=== PATIENT | male | born 1965 | race Caucasian/White ===

== ENCOUNTER 2021-01-14 14:05 | Outpatient (REF) | payer BC, SELFPAY ==
[2021-01-14 17:09] LABS: PSA,Total (Free>4and<10) 1.73 ng/mL (0.00-4.00)
== END 2021-01-14 14:06 | disposition home or self-care (01) ==
LOC: HO.HMGCLDS 14:05
PROVIDERS: PCP Nurse Practitioner Family; Visit Provider Urology
DX: N32.0 Bladder-neck obstruction (principal); Z12.5 Encounter for screening for malignant neoplasm of prostate
CPT/HCPCS: 36415; 84153

== ENCOUNTER → 2021-05-26 15:06 | Outpatient (BNVA) | payer BC, SELFPAY | PROVIDERS: PCP Nurse Practitioner Family; Visit Provider Urology ==

== ENCOUNTER 2021-08-19 12:48 | Outpatient (REF) | payer BC, SELFPAY ==
[2021-08-19 14:15] LABS: Appearance Urine CLEAR; Color Urine YELLOW; Glucose Urine UA NEG (NEG); Leukocyte Esterase Urine NEG (NEG); Nitrite Urine NEG (NEG); Specific Gravity - Urine 1.025 (1.005-1.025); Urine Blood NEG (NEG); Urine Ketones NEG (NEG); Urine Protein NEG (NEG-TRACE)
[2021-08-19 14:37] LABS: Alanine Aminotransferase 40 U/L (0-40); Albumin Level 4.8 g/dL (3.5-5.0); Alkaline Phosphatase 46 U/L (39-117); Anion Gap 14 (12-20); Aspartate Amino Transferase 31 U/L (5-37); Bilirubin Total 0.6 mg/dL (0.0-1.0); Blood Urea Nitrogen 17 mg/dL (9-16); Calcium 10.1 mg/dL (8.4-10.2); Carbon Dioxide 26 mmol/L (22-29); Chloride 105 mmol/L (96-108); Cholesterol 226 mg/dL; Estimated Glomerular Filt Rate 50; Glucose Fasting 86 mg/dL (60-99); HDL Cholesterol 38 mg/dL; LDL Cholesterol Calculated 136 mg/dl; Potassium 4.1 mmol/L (3.3-5.1); Sodium 141 mmol/L (135-145); Total Protein 8.1 g/dL (6.5-8.0); Triglycerides 260 mg/dL
[2021-08-19 14:58] LABS: TSH reflex Free T4 4.66 uIU/mL (0.32-4.0)
[2021-08-19 15:45] LABS: Free T4 (Free Thyroxine) 0.96 ng/dL (0.71-1.85)
== END 2021-08-19 12:49 | disposition home or self-care (01) ==
LOC: HO.HMGCLDS 12:48
PROVIDERS: PCP Nurse Practitioner Family; Visit Provider Nurse Practitioner Family
DX: Z00.00 Encounter for general adult medical examination without abnormal findings (principal)
CPT/HCPCS: 36415; 80053; 80061; 81003; 84439; 84443

== ENCOUNTER 2022-05-21 08:34 | Outpatient (REF) | payer BC, SELFPAY ==
[2022-05-21 11:54] LABS: Cholesterol 197 mg/dL; HDL Cholesterol 40 mg/dL; LDL Cholesterol Calculated 118 mg/dl; Triglycerides 197 mg/dL
[2022-05-21 11:55] LABS: Prostate Specific Antigen 1.86 ng/mL (<0.05-4.0)
[2022-05-21 11:56] LABS: TSH reflex Free T4 4.05 uIU/mL (0.32-4.0)
[2022-05-21 12:43] LABS: Free T4 (Free Thyroxine) 1.06 ng/dL (0.71-1.85)
[2022-05-24 22:02] LABS: Thyroid Peroxidase Antibodies 5 IU/mL (<9)
== END 2022-05-21 08:35 | disposition home or self-care (01) ==
LOC: HO.HMGCLDS 08:34
PROVIDERS: PCP Nurse Practitioner Family; Visit Provider Urology
DX: Z12.5 Encounter for screening for malignant neoplasm of prostate (principal); N13.8 Other obstructive and reflux uropathy; N40.1 Benign prostatic hyperplasia with lower urinary tract symptoms; E78.5 Hyperlipidemia, unspecified; R79.89 Other specified abnormal findings of blood chemistry
CPT/HCPCS: 36415; 80061; 84153; 84439; 84443; 86376

== ENCOUNTER → 2022-05-26 15:18 | Outpatient (BNVA) | payer BC, SELFPAY | PROVIDERS: PCP Nurse Practitioner Family; Visit Provider Urology | DX: N40.1 Benign prostatic hyperplasia with lower urinary tract symptoms (principal); N13.8 Other obstructive and reflux uropathy; R35.1 Nocturia | CPT/HCPCS: 51798 ==

== ENCOUNTER 2022-07-14 13:21 | Outpatient (REF) | payer BC, SELFPAY ==
--- NOTE | ~2022-07-14 | XR_ITS ---
EXAMINATION: XR HAND, RIGHT CLINICAL INFORMATION: M79.641 - Pain in right hand COMPARISON: Right hand radiographs 07/26/2017 TECHNIQUE: PA, lateral, and oblique views of the right hand. FINDINGS: No acute or healing fracture, dislocation, or destructive process. No periarticular demineralization. Ulnar variance is neutral. There is minor punctate mineralization just distal to the ulnar styloid which could be related to the ulnar attachment triangular fibrocartilage, not previously demonstrated. The carpus shows no joint narrowing or erosive change or other chondrocalcinosis. The MCP and interphalangeal joints show no focal narrowing or erosive change. There are mild degenerative changes with some mild spurring at the base distal phalanges. XR/XR hand RT min 3V IMPRESSION: 1. Punctate mineralization just distal to ulnar styloid, possibly related to ulnar attachment of triangular fibrocartilage. Otherwise, no other chondrocalcinosis. 2. Mild degenerative changes base distal phalanges. No focal joint narrowing or erosive change.
[2022-07-14 16:34] LABS: MANUAL DIFF FLAG NO
[2022-07-14 16:43] LABS: Basophils Percent Auto 0.4 % (0-2); Eosinophils Absolute Auto 0.1 X10*3/uL (0.0-0.4); Eosinophils Percent Auto 1.5 % (0-4); Hematocrit 46.4 % (42.0-52.0); Hemoglobin 15.7 g/dl (14.0-18.0); Imm Gran Abs Auto 0.02 X10*3/uL (0.00-0.03); Imm Gran Pct Auto 0.3 % (0.0-0.4); Lymphocytes Absolute Auto 2.8 X10*3/uL (1.2-4.9); Lymphocytes Percent Auto 37.5 % (20-40); Mean Corpuscular HGB Conc 33.8 g/dl (31.0-36.0); Mean Corpuscular Hemoglobin 30.6 pg (27.0-33.0); Mean Corpuscular Volume 90.4 fL (80.0-98.0); Mean Platelet Volume 10.6 fL (9.4-12.4); Monocytes Absolute Auto 0.7 X10*3/uL (0.1-1.2); Monocytes Percent Auto 9.2 % (2-11); Neutrophils Absolute Auto 3.9 x10*3/uL (2.0-8.3); Neutrophils Percent Auto 51.1 % (45-73); Platelet Count 226 X10*3/uL (160-400); Red Blood Count 5.13 X10*6/uL (4.60-5.80); Red Cell Distribution Width 11.8 % (11.0-16.0); White Blood Count 7.6 X10*3/uL (4.8-10.8)
[2022-07-14 16:54] LABS: Appearance Urine Clear; Color Urine Yellow; Glucose Urine UA Negative (Negative); Leukocyte Esterase Urine Negative (Negative); Nitrite Urine Negative (Negative); PH 5.5 (5.0-9.0); Urine Blood Negative (Negative); Urine Ketones Negative (Negative); Urine Protein Negative (Neg-Trace)
[2022-07-14 17:25] LABS: Alanine Aminotransferase 37 U/L (0-40); Albumin Level 4.8 g/dL (3.5-5.0); Alkaline Phosphatase 45 U/L (39-117); Anion Gap 16 (12-20); Aspartate Amino Transferase 26 U/L (5-37); Bilirubin Total 0.5 mg/dL (0.0-1.0); Blood Urea Nitrogen 20 mg/dL (9-16); Calcium 9.9 mg/dL (8.4-10.2); Carbon Dioxide 26 mmol/L (22-29); Chloride 103 mmol/L (96-108); Cholesterol 231 mg/dL; Estimated Glomerular Filt Rate 47; Glucose Fasting 87 mg/dL (60-99); HDL Cholesterol 44 mg/dL; LDL Cholesterol Calculated 157 mg/dl; Potassium 4.5 mmol/L (3.3-5.1); Sodium 140 mmol/L (135-145); TSH reflex Free T4 6.08 uIU/mL (0.32-4.0); Total Protein 7.8 g/dL (6.5-8.0); Triglycerides 153 mg/dL
[2022-07-14 18:30] LABS: Free T4 (Free Thyroxine) 0.97 ng/dL (0.71-1.85)
[2022-07-18 17:15] LABS: Testosterone, Total 397 ng/dL (250-1100)
== END 2022-07-14 13:22 | disposition home or self-care (01) ==
LOC: HO.HMGCX 13:21
PROVIDERS: Absent Provider Urology; PCP Nurse Practitioner Family; Visit Provider Nurse Practitioner Family
DX: Z00.00 Encounter for general adult medical examination without abnormal findings (principal); E29.1 Testicular hypofunction; G47.00 Insomnia, unspecified; M79.641 Pain in right hand
CPT/HCPCS: 36415; 73130; 80053; 80061; 81003; 84403; 84439; 84443; 85025

== ENCOUNTER 2022-07-23 14:41 | Outpatient (REF) | payer BC, SELFPAY ==
[2022-07-23 16:25] LABS: Alanine Aminotransferase 29 U/L (0-40); Albumin Level 4.7 g/dL (3.5-5.0); Alkaline Phosphatase 42 U/L (39-117); Anion Gap 14 (12-20); Aspartate Amino Transferase 20 U/L (5-37); Bilirubin Total 0.4 mg/dL (0.0-1.0); Blood Urea Nitrogen 15 mg/dL (9-16); Calcium 9.7 mg/dL (8.4-10.2); Carbon Dioxide 26 mmol/L (22-29); Chloride 104 mmol/L (96-108); Estimated Glomerular Filt Rate 54; Glucose Random 87 mg/dL (60-115); Sodium 140 mmol/L (135-145); TSH reflex Free T4 4.95 uIU/mL (0.32-4.0); Total Protein 7.7 g/dL (6.5-8.0)
[2022-07-23 17:03] LABS: Free T4 (Free Thyroxine) 0.93 ng/dL (0.71-1.85)
== END 2022-07-23 14:42 | disposition home or self-care (01) ==
LOC: HO.HMGCLDS 14:41
PROVIDERS: PCP Nurse Practitioner Family; Visit Provider Nurse Practitioner Family
DX: R79.89 Other specified abnormal findings of blood chemistry (principal)
CPT/HCPCS: 36415; 80053; 84439; 84443

== ENCOUNTER 2022-08-09 17:10 | Outpatient (REF) | payer BC, SELFPAY ==
--- NOTE | ~2022-08-09 | XR_ITS ---
EXAMINATION: XR pre mri screening CLINICAL INFORMATION: Reason for Exam PRE MRI COMPARISON: None. TECHNIQUE: 3 views orbits FINDINGS: No metallic intraorbital foreign body identified. Paranasal sinuses appear normally aerated. XR/XR pre mri screening IMPRESSION: No metallic intraorbital foreign body identified.
--- NOTE | ~2022-08-09 | MR_ITS ---
EXAMINATION: MR HAND WITHOUT CONTRAST, RIGHT CLINICAL INFORMATION: Crush injury 1 month ago. Pain and weakness. COMPARISON: Right hand radiographs dated 07/14/2022. TECHNIQUE: Multisequence MR imaging of the right hand was obtained without contrast on a high-field strength scanner. FINDINGS: BONE: Minimal patchy marrow edema within the dorsal aspect of the hamate as well as the adjacent 4th metacarpal which could represent a mild osseous contusion. No definite fracture line. No dislocation. No concerning lytic or blastic osseous lesion. MUSCLES/TENDONS: Mild fluid and edema within the extensor carpi ulnaris tendon sheath consistent with minimal tenosynovitis. Additionally, there is mild fluid within the extensor digiti minimi tendon sheath consistent with minimal tenosynovitis. No transverse tendon tear or tendon retraction. LIGAMENTS: The collateral ligaments are intact. SOFT TISSUES: Deep to the carpal tunnel, there is fluid signal extending from the level of the carpal bones to the mid diaphysis of the 4th metacarpal measuring up to 4.5 cm in craniocaudal dimension. Findings could represent a synovial recess versus ganglion cyst. Alternatively, findings could indicate minimal tenosynovitis. MR/MR hand RT wo con IMPRESSION: 1. Minimal patchy marrow edema within the dorsal aspect of the hamate as well as the adjacent 4th metacarpal which could represent a mild osseous contusion. No definite fracture line. 2. Mild extensor carpi ulnaris and extensor digiti minimi tenosynovitis. No transverse tendon tear or tendon retraction. 3. Fluid signal deep to the carpal tunnel extending from the level of the carpal bones to the mid diaphysis of the 4th metacarpal measuring up to 4.5 cm in craniocaudal dimension. Findings could represent a synovial recess versus ganglion cyst. Alternatively, findings could indicate minimal tenosynovitis.
== END 2022-08-09 17:11 | disposition home or self-care (01) ==
LOC: HO.MRI 17:10
PROVIDERS: Visit Provider Nurse Practitioner Family
DX: M79.641 Pain in right hand (principal); M79.89 Other specified soft tissue disorders; R29.898 Other symptoms and signs involving the musculoskeletal system
CPT/HCPCS: 73218

== ENCOUNTER 2022-10-05 11:15 | Outpatient (REF) | payer BC, SELFPAY ==
--- NOTE | ~2022-10-05 | XR_ITS ---
EXAMINATION: XR WRIST, RIGHT CLINICAL INFORMATION: Pain in right wrist. COMPARISON: None TECHNIQUE: PA, lateral, and oblique views of the right wrist. FINDINGS: There is no visible acute fracture, dislocation or subluxation seen. No bony erosive changes. The soft tissues are normal. XR/XR wrist RT min 3V IMPRESSION: Unremarkable right wrist exam.
== END 2022-10-05 11:16 | disposition home or self-care (01) ==
LOC: HO.HOSX 11:15
PROVIDERS: Visit Provider Orthopaedic Surgery
DX: S60.211A Contusion of right wrist, initial encounter (principal); S60.221A Contusion of right hand, initial encounter; M67.40 Ganglion, unspecified site; R29.898 Other symptoms and signs involving the musculoskeletal system
CPT/HCPCS: 73110

== ENCOUNTER 2023-05-23 13:21 | Outpatient (REF) | payer BC, SELFPAY ==
[2023-05-23 16:42] LABS: Prostate Specific Antigen 2.45 ng/mL (<0.05-4.0)
== END 2023-05-23 13:22 | disposition home or self-care (01) ==
LOC: HO.HMGCLDS 13:21
PROVIDERS: PCP Nurse Practitioner Family; Visit Provider Urology
DX: N40.1 Benign prostatic hyperplasia with lower urinary tract symptoms (principal); N13.8 Other obstructive and reflux uropathy; Z12.5 Encounter for screening for malignant neoplasm of prostate
CPT/HCPCS: 36415; 84153

== ENCOUNTER 2023-05-25 15:34 | Outpatient (AMB) | payer BC, SELFPAY ==
--- NOTE | 2023-05-25 15:44 | A.OFFVIS_ITS ---
Intake Intake Visit Reasons: 1Y PSA(set) Intake Note: Patient is Present for Follow Up PSA Urology Medication: Finasteride, Tamsulosin Antibiotic Allergies: None Blood Thinners:None Pharmacy:[facility] Allergies levothyroxine sodium Allergy (Unknown, Verified 10/05/22 11:07) unsure simvastatin [Zocor] Allergy (Unknown, Verified 10/05/22 11:07) Unknown lisinopril Adverse Reaction (Unknown, Verified 10/05/22 11:07) cough Medication List - Last Reconciled 05/25/23 by Garrett Hernandez MD finasteride 5 mg PO Tuesday, Tuesday, and Tuesday; metoprolol succinate ER 100 mg PO DAILY rosuvastatin 5 mg PO DAILY tamsulosin 0.4 mg PO DAILY trazodone 100 mg PO BEDTIME PRN 90 days HPI HPI Comments History of Present Illness Details ? Ty MYERS is a very pleasant male. They are a patient of Dr. Huang. They are seen in the office today for the following urologic conditions. - lower urinary tract symptoms PSA remains low Finasteride every other day PVR 90 Check labs in 12 months Did have some issues with libido - baseline testosterone 400 Lower Urinary Tract Symptoms:? Current visit is for?further evaluation of, lower urinary tract symptoms, predominate obstructive symptoms.? Current treatment includes?alpha margarita, 5-AR.? Prostate Symptom Score?Main issue is weakness of stream with incomplete emptying has been progressive.? Results from testing include? 2018 ? renal/bladder us ?Yes ? PVR ?350 ? prostate size ?75 ? Prior Prostate Score?unknown.? Prostate volume?50+gm.? SPA 07/17 2.1, 01/16 1.7, 05/20 1.8 ? Testing at next visit will include?uroflow.? Treatment plan?review in 12 months [facility] Medical History Erectile dysfunction Thyroid disease Cervical radiculitis Anal fissure NSVT (nonsustained ventricular tachycardia) PVC (premature ventricular contraction) Weak urinary stream History of adenomatous polyp of colon GERD (gastroesophageal reflux disease) Dysphagia Hemochromatosis carrier Essential hypertension Surgical History History of anal fissures History of vasectomy Family History Father Lung cancer Mother Diabetes mellitus Heart problem Tachycardia Maternal Grandmother Unknown family medical history Social History Housing: House Patient Tobacco Use Status: Former Tobacco user Tobacco use type: Cigarette Years Smoked: 1991 e-Cigarette/Vaping Use: Never Used Second Hand Smoke Exposure: No service: Yes Current occupational status: employed Current occupation: [employer] Current occupational exposures/hazards: Yes Cognitive needs: No Hearing needs: No Vision needs: No Review of Systems Const Denies chills and Denies fever(s) Card Reports no additional complaints and Denies syncope Resp Denies cough GI Denies abdominal pain and Denies heartburn Reports as per HPI and Denies change in libido Neuro Denies syncope Psych Denies change in libido Endo Denies change in libido Physical Exam Const General: cooperative, healthy appearing, comfortable and no acute distress Orientation/consciousness: patient oriented x3 HEENT Face and sinus: Yes normal facial exam Mouth: moist mucous membranes Neck Neck: Yes normal visual inspection, Yes full ROM and Yes trachea midline Chest Chest palpation & inspection: normal inspection of the chest Resp Effort & Inspection: normal respiratory effort, able to speak in complete sentences and no respiratory distress GI Inspection: Yes normal to inspection Back/Spine/Pelvis Cervical Spine: normal cervical lordosis Thoracic/Lumbar Spine: thoracic and lumbar spine normal to inspection Skin General skin exam: no rashes or lesions noted Neuro General: patient oriented x3, gait normal, tone normal and moves all extremities Extrem General: Yes normal to inspection and Yes capillary refill normal Assessment & Plan Assessment & Plan (1) BPH w urinary obs/LUTS: Code(s): N40.1 - Benign prostatic hyperplasia with lower urinary tract symptoms; N13.8 - Other obstructive and reflux uropathy (2) Nocturia: Code(s): R35.1 - Nocturia Plan Twelve month follow-up PSA Orders: Orders Prostate Specific Antigen 364 Days N13.8 - Other obstructive and reflux uropathy, N40.1 - Benign prostatic hyperplasia with lower urinary tract symptoms Patient Instructions: Imaging studies, laboratory and physical exam results were discussed and reviewed in detail. No major barriers to patient understanding were identified. An opportunity to ask questions regarding the treatment plan was provided. All questions were answered. The patient expressed understanding and agreement with the above treatment plan. The patient is aware they should contact our office by phone for worsening of their current condition or the appearance of new urologic symptoms. Compliance is encouraged with any medications and followup testing that is ordered. It is a privilege to participate in the urologic care of your patient. If you have any questions or concerns regarding treatment for the above conditions, or other urologic issues, please do not hesitate to contact me. The office telephone contact is [phone]. This note is constructed using voice recognition software. While every effort has been made to ensure accuracy outboard motor mechanic errors may have been included. Yours sincerely, Dr Garrett Hernandez MD, [facility] Providers of Expert, Compassionate Care for the Genitourinary System Coding Level of Care Code Est Pt Level 4 (38413) Diagnoses BPH w urinary obs/LUTS N40.1; N13.8 Nocturia R35.1
== END 2023-05-25 15:51 | disposition home or self-care (01) ==
PROVIDERS: PCP Nurse Practitioner Family; Visit Provider Urology
DX: N40.1 Benign prostatic hyperplasia with lower urinary tract symptoms (principal); N13.8 Other obstructive and reflux uropathy; R35.1 Nocturia
CPT/HCPCS: 99213

== ENCOUNTER → 2023-05-25 15:34 | Outpatient (BNVA) | payer BC, SELFPAY | PROVIDERS: Visit Provider Urology ==

== ENCOUNTER 2023-09-05 15:33 | Outpatient (AMB) | payer BC, SELFPAY ==
--- NOTE | 2023-09-05 15:35 | A.OFFPC_ITS ---
Vital Signs 09/05/23 15:37 09/05/23 16:32 Height 5 ft 8 in Weight 231 lb BMI 35.1 BP 130/98 H 130/84 Blood Pressure Location Lt brachial Rt brachial Position Sitting Sitting Pulse 71 Pulse Source Pulse Oximeter Pulse Oximetry (%) 99 Oxygen Delivery Method Room Air Intake Visit Reasons: Annual PE Intake Note: Patient here for physical exam. Pt would like to talk about sleep issues, states hes only been getting about 2-3 hours sleep. Allergies levothyroxine sodium Allergy (Unknown, Verified 09/05/23 15:39) unsure simvastatin [Zocor] Allergy (Unknown, Verified 09/05/23 15:39) Unknown lisinopril Adverse Reaction (Unknown, Verified 09/05/23 15:39) cough Medication List - Last Reconciled 09/05/23 by JARED Deutsch finasteride 5 mg PO Tuesday, Tuesday, and Tuesday; metoprolol succinate ER 100 mg PO DAILY rosuvastatin 5 mg PO DAILY tamsulosin 0.4 mg PO DAILY trazodone 100 mg PO BEDTIME PRN 90 days Tobacco use date assessed: 09/05/23 Dental Screening Dental Screen Date: 09/05/23 Did you have a dental visit in the last 12 months?: No Did you have a dental problem in the last 6 months where you did not have access to dental care?: No Was dental information given to patient?: Patient has dentist HPI Annual PE HPI Details Pt is here for a PE. Will order labs. Due for colon screen next month, will refer to GI. PSA is up to date. Pt follows up with urology. Denies dribbling with urination, weak stream, and frequent nocturia. [facility] Medical History Erectile dysfunction Thyroid disease Cervical radiculitis Anal fissure NSVT (nonsustained ventricular tachycardia) PVC (premature ventricular contraction) Weak urinary stream History of adenomatous polyp of colon GERD (gastroesophageal reflux disease) Dysphagia Hemochromatosis carrier Essential hypertension Surgical History History of anal fissures History of vasectomy Family History Father Lung cancer Mother Diabetes mellitus Heart problem Tachycardia Maternal Grandmother Unknown family medical history Social History Housing: House Patient Tobacco Use Status: Former Tobacco user Tobacco use type: Cigarette Years Smoked: 1991 e-Cigarette/Vaping Use: Never Used Second Hand Smoke Exposure: No service: Yes Current occupational status: employed Current occupation: [employer] Current occupational exposures/hazards: Yes Cognitive needs: No Hearing needs: No Vision needs: No Questionnaire Thrive Questionnaire Date Thrive assessed: 07/13/22 I am a: Patient What is your living situation today?: I have a steady place to live Within the past 12 months, did the food you bought not last and you didn't have the money to get more?: Never true Within the past 12 months, did you worry whether your food would run out before you got money to buy more?: Never true Please select the resources that you would like help with: None AUDIT C Alcohol Use Questionnaire (AUDIT-C) 1. How often do you have a drink containing alcohol?: Monthly or less 2. How many drinks containing alcohol do you have on a typical day when you are drinking?: 1 or 2 3. How often do you have six or more drinks on one occasion?: Never Total Score: 1 Score Reviewed/Action Taken: No KLAUDIA-7 AMB Questionnaire KLAUDIA-7 Date KLAUDIA - 7 assessed: 07/13/22 Feeling nervous, anxious, or on edge: 1 = Several days Not being able to stop or control worryin = Several days Worrying too much about different things: 1 = Several days Trouble relaxin = Several days Being so restless that it is hard to sit still: 1 = Several days Becoming easily annoyed or irritable: 1 = Several days Feeling afraid as if something awful might happen: 0 = Not at all Total KLAUDIA-7 score (0-4 normal; 5-9 mild; 10-14 moderate; 15-21 severe): 6 Source: Developed by Drs. Renard Cooper, Kaitlin Schmitz, Leoncio Zapata and colleagues, with an educational macie from [employer] KLAUDIA-7 Assessment Billing KLAUDIA-7 Assessment Tool: KLAUDIA-7 Assessment 32054 Review of Systems Const Denies chills and Denies fever(s) Eyes Denies blurry vision ENT Denies vertigo, Denies dizziness and Denies sore throat Card Denies chest pain at rest, Denies chest pain with activity, Denies diaphoresis, Denies dyspnea and Denies dyspnea on exertion Resp Denies cough, Denies dyspnea, Denies dyspnea on exertion and Denies wheezing GI Denies abdominal pain, Denies melena, Denies hematochezia, Denies constipation, Denies diarrhea and Denies loose stools Denies hematuria Musc Denies numbness and Denies tingling Skin/Breast Denies lesions Neuro Denies vertigo, Denies dizziness, Denies numbness and Denies tingling Psych Denies anxiety, Denies depression, Denies homicidal ideation, Denies suicidal ideation and Denies other (substance abuse) Aller/Immun Denies wheezing Physical exam (Primary Care) Vital Signs: Last Vital Signs Pulse 71 09/05/23 15:37 BP 130/98 H 09/05/23 15:37 Pulse Ox 99 09/05/23 15:37 Oxygen Delivery Method Room Air 09/05/23 15:37 BMI result Body Mass Index 35.1 Tobacco/Smoking Status: Tobacco use Status Tobacco use date assessed 09/05/23 09/05/23 15:41 Patient Tobacco Use Status Former Tobacco user 09/05/23 15:36 Tobacco use type Cigarette 09/05/23 15:36 e-Cigarette/Vaping Use Never Used 09/05/23 15:36 Thrive Assessment: Date of Thrive Assessment Date Thrive assessed 07/13/22 09/05/23 15:36 Const General: cooperative Nutritional Appearance: obese Orientation/consciousness: patient oriented x3 HENMT Head: Yes normal to inspection, Yes normocephalic and Yes atraumatic Ears: TM's normal bilaterally Eyes General: appearance normal, both eyes and all related structures Alignment and Position: alignment normal and position normal Neck Neck: Yes normal visual inspection and Yes no lymphadenopathy Thyroid: Thyroid normal Resp Effort & Inspection: normal respiratory effort Auscultation: clear to auscultation bilaterally Cardio Rate: regular rate Rhythm: regular rhythm Heart sounds: S1 normal heart sound present, S2 normal heart sound present and no murmurs GI Palpation (GI): Soft to palpation and nontender Auscultation: normal bowel sounds Male General Exam: Yes normal external exam Penis: normal penis Scrotum: scrotum normal, testes descended bilaterally and no inguinal hernias Testes: no testicular mass Skin Rashes: no rashes Neuro General: patient oriented x3, moves all extremities, no focal motor deficits and deep tendon reflexes 2+ bilaterally Romberg Test: Negative Psych Appearance: grossly normal Mental Status: mental status grossly normal Speech and movement: Normal speech and movement present Affect: normal affect Attitude: cooperative Thought process: Normal thought process present Thought content: Normal thought content present Insight: Good insight present (Psych) Judgement: Good judgement present (Psych) Assessment and Plan Assessment & Plan (1) Physical exam: Code(s): Z00.00 - Encounter for general adult medical examination without abnormal findings Plan: Labs ordered (2) Screening for colon cancer: Code(s): Z12.11 - Encounter for screening for malignant neoplasm of colon Plan: referral placed Plan The patient agreed to the use of a medical voucher clerk for this encounter. Scribed for JARED Brooks by Marina Ordaz medical voucher clerk, on 09/05/2023 at 16:05 EST. Orders: Orders Comprehensive [place]. Panel Fast Today Z00.00 - Encounter for general adult medical examination without abnormal findings Complete Blood Count Auto Diff Today Z00.00 - Encounter for general adult medical examination without abnormal findings TSH reflex Free T4 Today Z00.00 - Encounter for general adult medical examination without abnormal findings UA CC w/rflx Micro + Cult Today Z00.00 - Encounter for general adult medical examination without abnormal findings Lipid Panel Today Z00.00 - Encounter for general adult medical examination without abnormal findings Referrals Gastroenterology Referral Z12.11 - Encounter for screening for malignant neoplasm of colon Coding Level of Care Code Est Pt Prev Care 40-64y(23463) Diagnoses Physical exam Z00.00 Screening for colon cancer Z12.11 Additional Codes KLAUDIA-7 Assessment Billing - KLAUDIA-7 Assessment Tool: KLAUDIA-7 Assessment 23944 ([id number])
[2023-09-05 15:37] VITALS: BP 130/98; PULSE 71; O2SAT 99; BMI 35.1
[2023-09-05 16:32] VITALS: BP 130/84
== END 2023-09-05 16:35 | disposition home or self-care (01) ==
PROVIDERS: Visit Provider Nurse Practitioner Family
DX: Z00.00 Encounter for general adult medical examination without abnormal findings (principal); Z12.11 Encounter for screening for malignant neoplasm of colon
CPT/HCPCS: 99396

== ENCOUNTER 2023-10-10 13:21 | Outpatient (REF) | payer BC, SELFPAY ==
[2023-10-10 16:23] LABS: Appearance Urine Clear; Color Urine Yellow; Glucose Urine UA Negative (Negative); Leukocyte Esterase Urine Negative (Negative); Nitrite Urine Negative (Negative); Urine Blood Negative (Negative); Urine Ketones Negative (Negative); Urine Protein Negative (Neg-Trace)
[2023-10-10 16:27] LABS: MANUAL DIFF FLAG NO
[2023-10-10 16:37] LABS: Basophils Percent Auto 0.4 % (0-2); Eosinophils Absolute Auto 0.1 X10*3/uL (0.0-0.4); Eosinophils Percent Auto 0.7 % (0-4); Hematocrit 45.3 % (42.0-52.0); Hemoglobin 15.6 g/dl (14.0-18.0); Imm Gran Abs Auto 0.01 X10*3/uL (0.00-0.03); Imm Gran Pct Auto 0.1 % (0.0-0.4); Lymphocytes Absolute Auto 2.1 X10*3/uL (1.2-4.9); Lymphocytes Percent Auto 28.6 % (20-40); Mean Corpuscular HGB Conc 34.4 g/dl (31.0-36.0); Mean Corpuscular Hemoglobin 31.2 pg (27.0-33.0); Mean Corpuscular Volume 90.6 fL (80.0-98.0); Mean Platelet Volume 10.6 fL (9.4-12.4); Monocytes Absolute Auto 0.6 X10*3/uL (0.1-1.2); Monocytes Percent Auto 8.6 % (2-11); Neutrophils Absolute Auto 4.6 x10*3/uL (2.0-8.3); Neutrophils Percent Auto 61.6 % (45-73); Platelet Count 210 X10*3/uL (160-400); White Blood Count 7.4 X10*3/uL (4.8-10.8)
[2023-10-10 16:50] LABS: Alanine Aminotransferase 37 U/L (0-40); Albumin Level 4.8 g/dL (3.5-5.0); Alkaline Phosphatase 44 U/L (39-117); Anion Gap 14 (12-20); Aspartate Amino Transferase 25 U/L (5-37); Bilirubin Total 0.3 mg/dL (0.0-1.0); Blood Urea Nitrogen 15 mg/dL (9-16); Carbon Dioxide 25 mmol/L (22-29); Chloride 106 mmol/L (96-108); Cholesterol 219 mg/dL (<200); Estimated Glomerular Filt Rate > 60; Glucose Fasting 94 mg/dL (60-99); HDL Cholesterol 47 mg/dL (>40); LDL Cholesterol Calculated 132 mg/dL (<100); Potassium 3.6 mmol/L (3.3-5.1); Sodium 141 mmol/L (135-145); Total Protein 8.1 g/dL (6.5-8.0); Triglycerides 201 mg/dL (<150)
[2023-10-10 17:07] LABS: TSH reflex Free T4 8.71 uIU/mL (0.32-4.0)
[2023-10-10 17:48] LABS: Free T4 (Free Thyroxine) 0.87 ng/dL (0.71-1.85)
== END 2023-10-10 13:22 | disposition home or self-care (01) ==
LOC: HO.HMGCLDS 13:21
PROVIDERS: PCP Nurse Practitioner Family; Visit Provider Nurse Practitioner Family
DX: Z00.00 Encounter for general adult medical examination without abnormal findings (principal)
CPT/HCPCS: 36415; 80053; 80061; 81003; 84439; 84443; 85025

== ENCOUNTER 2024-01-13 10:42 | Outpatient (AMB) | payer BC, SELFPAY ==
[2024-01-13 10:46] VITALS: BP 134/72; PULSE 69; O2SAT 96; BMI 35.6
--- NOTE | 2024-01-13 10:46 | A.OFFPC_ITS ---
Vital Signs 01/13/24 10:46 Height 5 ft 8 in Weight 234 lb BMI 35.6 BP 134/72 Blood Pressure Location Lt brachial Position Sitting Pulse 69 Pulse Source Pulse Oximeter Pulse Oximetry (%) 96 Oxygen Delivery Method Room Air Intake Visit Reasons: Back Pain Intake Note: Pt is here today for a sick visit. Pt c/o lower back pain that goes down his legs. Pt states that it has been going on for last 3 weeks. Allergies levothyroxine sodium Allergy (Unknown, Verified 01/13/24 10:50) unsure simvastatin [Zocor] Allergy (Unknown, Verified 01/13/24 10:50) Unknown lisinopril Adverse Reaction (Unknown, Verified 01/13/24 10:50) cough Medication List - Last Reconciled 01/13/24 by Sindhu Hernandez MD baclofen 10 mg PO BID finasteride 5 mg PO Tuesday, Tuesday, and Tuesday; losartan 25 mg PO DAILY meloxicam 15 mg PO DAILY metoprolol succinate ER 100 mg PO DAILY rosuvastatin 5 mg PO DAILY tamsulosin 0.4 mg PO DAILY trazodone 100 mg PO BEDTIME PRN 90 days Tobacco use date assessed: 09/05/23 Dental Screening Dental Screen Date: 09/05/23 HPI Back Pain HPI Details Pt presents c/o 2 weeks of LBP radiating to LLE worse when twisting his body or lifting heavily. he denies weakness or numbness in extremities change in bladder or bowel function. Patient had similar symptoms before and had an M RI about 10 years ago consistent with disc herniation. [facility] Medical History Erectile dysfunction Thyroid disease Cervical radiculitis Anal fissure NSVT (nonsustained ventricular tachycardia) PVC (premature ventricular contraction) Weak urinary stream History of adenomatous polyp of colon GERD (gastroesophageal reflux disease) Dysphagia Hemochromatosis carrier Essential hypertension Surgical History History of anal fissures History of vasectomy Family History Father Lung cancer Mother Diabetes mellitus Heart problem Tachycardia Maternal Grandmother Unknown family medical history Social History (Reviewed 09/05/23 @ 16:00 by Srini Epperson [facility] Housing: House Patient Tobacco Use Status: Former Tobacco user Tobacco use type: Cigarette Years Smoked: 1991 e-Cigarette/Vaping Use: Never Used Second Hand Smoke Exposure: No service: Yes Current occupational status: employed Current occupation: [employer] Current occupational exposures/hazards: Yes Cognitive needs: No Hearing needs: No Vision needs: Yes Questionnaire Thrive Questionnaire Date Thrive assessed: 07/13/22 KLAUDIA-7 AMB Questionnaire KLAUDIA-7 Date KLAUDIA - 7 assessed: 07/13/22 Source: Developed by Drs. Renard Cooper, Kaitlin Schmitz, Leoncio Zapata and colleagues, with an educational macie from [employer]. Review of Systems Const All systems reviewed & are unremarkable except as noted in HPI and below Card Reports no additional complaints Resp Reports no additional complaints GI Reports no additional complaints Reports no additional complaints Physical exam (Primary Care) Vital Signs: Last Vital Signs Pulse 69 01/13/24 10:46 BP 134/72 01/13/24 10:46 Pulse Ox 96 01/13/24 10:46 Oxygen Delivery Method Room Air 01/13/24 10:46 BMI result Body Mass Index 35.6 Tobacco/Smoking Status: Tobacco use Status Tobacco use date assessed 09/05/23 01/13/24 10:47 Patient Tobacco Use Status Former Tobacco user 01/13/24 10:47 Tobacco use type Cigarette 01/13/24 10:47 e-Cigarette/Vaping Use Never Used 01/13/24 10:47 Thrive Assessment: Date of Thrive Assessment Date Thrive assessed 07/13/22 01/13/24 10:47 Const General: no acute distress Resp Effort & Inspection: normal respiratory effort Auscultation: clear to auscultation bilaterally Cardio Rhythm: regular rhythm Heart sounds: S1 normal heart sound present and S2 normal heart sound present Back/Spine/Pelvis Other: Paraspinal tenderness in lower lumbar region left more than right, straight leg rising 45 degrees on the left 90 degrees on the right, deep tendon reflexes 2+ bilaterally, lower extremity strength 5/5 bilaterally Assessment and Plan Assessment & Plan (1) Sciatica: Code(s): M54.30 - Sciatica, unspecified side Plan: Supportive care discussed with the patient, meloxicam and baclofen are prescribed and patient will be referred to physical therapy Orders: Orders PT Evaluation and Treatment Today M54.30 - Sciatica, unspecified side Medications: New meloxicam 15 mg PO DAILY 10 tabs 0RF baclofen 10 mg PO BID 20 tabs 0RF Coding Level of Care Code Est Pt Level 3 (26961) Diagnoses Sciatica M54.30
== END 2024-01-13 12:10 | disposition home or self-care (01) ==
PROVIDERS: PCP Nurse Practitioner Family; Visit Provider Internal Medicine
DX: M54.30 Sciatica, unspecified side (principal)
CPT/HCPCS: 99213

== ENCOUNTER 2024-02-10 09:00 | Outpatient (RCR) | payer BC, SELFPAY ==
--- NOTE | 2024-01-20 09:56 | MHC.PT.EP ---
[facility] [place] Office [place] [facility] [place] Office [address] Jodi Horta [address] [phone] F: [phone] F: [phone] F: [phone] F: [phone] Physical Therapy Plan of Care Date of Evaluation: 01/20/24 Date of Surgery: Diagnosis: This is a 58 yo male presenting to skilled PT with a script for sciatica. Assessment: This is a 58 yo male presenting to skilled PT with a script for sciatica. Patient had presented to the walk in on 01/12 with complaints of LBP with radiating LE symptoms with twisting and heaving lifting ongoing for about 3 weeks prior to this walk in visit. He had an MRI a few years back with reports of herniated disc. Originally, after noting the pain, he was unable to walk it was so bad and his leg was unable to bear weight. He is here today reporting that his symptoms are located L side low back that radiating down the L LE. Pain travels into the buttock, medial thigh and then posteriorly down the leg and into the foot. Pain is constant, leg buckling and sharp. Denies numbness and tingling. 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 Assessment reveals pain that ranges from up to a 4/10 at the worst. Patient demos decreased lumbar and LE ROM, strength of core, back and BLE's, TTP at lumbar soft tissues and impaired posture with forward head and rounded shoulders as well as impaired gait and balance. His symptoms seem to be consistent with lumbar posterior disc derangement. Based on functional limitations, impaired QOL and pain tolerance patient is a good candidate for skilled PT 2x/wk for 4wks. Frequency and Duration: The patient will be seen 2x/wk for 4wks Short Term Goals: Pt will demonstrate centralization of sx in 2 weeks. Pt will continue to reinforce precautions, sitting, standing and ADL modifications with proper body mechanics in 2 wks. Pt will demonstrate ability to perform supine PPT with good TA recruitment in 2 weeks for improved core strength. Pt will demonstrate improved postural awareness and understanding of core engagement with progression into standing tasks without cues throughout session to improve overall back safety in 2 weeks. Fpc Goals: Pt will demonstrate improved outcome measure by 5 points in 4 weeks for improved functional mobility. Pt will demonstrate ability to bend and lift WNL min to no pain for household tasks in 4 wks. Pt will be I in HEP and compliant in 4wks Pt will improve hip and core strength by at least 1 MMT in 4 wks Treatment Plan: Modalities to reduce pain, spasms and effusion. Manual therapy to restore motion and function. Therapeutic exercise to improve strength and flexibility. Neuromuscular re-education for posture and balance. Therapeutic activities to return to functional activities of daily living. Electronically signed by: Belinda Valdovinos PT Please sign and return to therapist. Thank you for your referral.
--- NOTE | 2024-03-08 09:29 | MHC.PT.DC ---
[facility] [place] Office [place] Office [place] Office [address] Jodi Horta [address] [phone] F: [phone] F: [phone] F: [phone] F: [phone] Physical Therapy Discharge Report Diagnosis: This is a 58 yo male presenting to skilled PT with a script for sciatica. Date of Surgery: Date of Evaluation: 01/20/24 Date of Discharge: 03/08/24 Treatments to Date: 4 Cancellations to Date: 0 No Shows to Date: 0 Discharge Status: Achieved Goals Improved Function Independent with HEP Patient Elected to Stop Discharge Summary: Patient with good movement, no pain throughout and PT session at his last tx date. 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 He elected to stop PT and continue his HEP on his own at home due to improvements in pain, ROM and strength. He has met his goals and is ready for DC. Electronically signed by: Belinda Valdovinos PT Please sign and return to therapist. Thank you for your referral.
== END 2024-03-08 09:29 | disposition home or self-care (01) ==
LOC: HO.PTCHIC 09:00
PROVIDERS: PCP Nurse Practitioner Family; Visit Provider Internal Medicine
DX: M54.30 Sciatica, unspecified side (principal)
CPT/HCPCS: 97110; 97162

== ENCOUNTER 2024-05-22 13:31 | Outpatient (REF) | payer BC, SELFPAY ==
[2024-05-22 17:46] LABS: Prostate Specific Antigen 1.73 ng/mL (<0.05-4.0)
== END 2024-05-22 13:32 | disposition home or self-care (01) ==
LOC: HO.HMGCLDS 13:31
PROVIDERS: PCP Nurse Practitioner Family; Visit Provider Urology
DX: N40.1 Benign prostatic hyperplasia with lower urinary tract symptoms (principal); N13.8 Other obstructive and reflux uropathy; Z12.5 Encounter for screening for malignant neoplasm of prostate
CPT/HCPCS: 36415; 84153

== ENCOUNTER 2024-05-25 15:45 | Outpatient (AMB) | payer BC, SELFPAY ==
--- NOTE | 2024-05-25 15:46 | A.OFFVIS_ITS ---
Intake Visit Reasons: 1Y Follow Up-PSA(set) Intake Note: Patient is present for follow up PSA Urology Med: Finasteride, Tamsulosin Fitness Services Manager Required: No Allergies levothyroxine sodium Allergy (Unknown, Verified 01/13/24 10:50) unsure simvastatin [Zocor] Allergy (Unknown, Verified 01/13/24 10:50) Unknown lisinopril Adverse Reaction (Unknown, Verified 01/13/24 10:50) cough HPI Comments Details: ? Ty MYERS is a very pleasant male. They are a patient of Dr. Huang. They are seen in the office today for the following urologic conditions. - lower urinary tract symptoms PSA remains low Finasteride every other day Check labs in 12 months Did have some issues with libido - baseline testosterone 400 Lower Urinary Tract Symptoms:? Current visit is for?further evaluation of, lower urinary tract symptoms, predominate obstructive symptoms.? Current treatment includes?alpha margarita, 5-AR.? Prostate Symptom Score?Main issue is weakness of stream with incomplete emptying has been progressive.? Results from testing include? 2018 ? renal/bladder us ?Yes ? PVR ?350 ? prostate size ?75 ? Prior Prostate Score?unknown.? Prostate volume?50+gm.? SPA 07/17 2.1, 01/16 1.7, 05/20 1.8, 05/22 1.7 ? Testing at next visit will include?uroflow.? Treatment plan?review in 12 months [facility] Medical History Erectile dysfunction Thyroid disease Cervical radiculitis Anal fissure NSVT (nonsustained ventricular tachycardia) PVC (premature ventricular contraction) Weak urinary stream History of adenomatous polyp of colon GERD (gastroesophageal reflux disease) Dysphagia Hemochromatosis carrier Essential hypertension Surgical History History of anal fissures History of vasectomy Family History Father Lung cancer Mother Diabetes mellitus Heart problem Tachycardia Maternal Grandmother Unknown family medical history Social History Housing: House Patient Tobacco Use Status: Former Tobacco user Tobacco use type: Cigarette Years Smoked: 1991 e-Cigarette/Vaping Use: Never Used Second Hand Smoke Exposure: No service: Yes Current occupational status: employed Current occupation: [employer] Current occupational exposures/hazards: Yes Cognitive needs: No Hearing needs: No Vision needs: Yes Review of Systems Const Denies chills and Denies fever(s) Card Reports no additional complaints and Denies syncope Resp Denies cough GI Denies abdominal pain and Denies heartburn Reports as per HPI and Denies change in libido Neuro Denies syncope Psych Denies change in libido Endo Denies change in libido Physical Exam Const General: cooperative, healthy appearing, comfortable and no acute distress Orientation/consciousness: patient oriented x3 HEENT Face and sinus: Yes normal facial exam Mouth: moist mucous membranes Neck Neck: Yes normal visual inspection, Yes full ROM and Yes trachea midline Chest Chest palpation & inspection: normal inspection of the chest Resp Effort & Inspection: normal respiratory effort, able to speak in complete sentences and no respiratory distress GI Inspection: Yes normal to inspection Back/Spine/Pelvis Cervical Spine: normal cervical lordosis Thoracic/Lumbar Spine: thoracic and lumbar spine normal to inspection Skin General skin exam: no rashes or lesions noted Neuro General: patient oriented x3, gait normal, tone normal and moves all extremities Extrem General: Yes normal to inspection and Yes capillary refill normal Assessment & Plan Assessment & Plan (1) BPH w urinary obs/LUTS: Code(s): N40.1 - Benign prostatic hyperplasia with lower urinary tract symptoms; N13.8 - Other obstructive and reflux uropathy Category: Medical (2) Nocturia: Code(s): R35.1 - Nocturia Category: Medical Plan Continue medications Twelve month follow-up PSA Orders: Orders Prostate Specific Antigen 364 Days N40.1 - Benign prostatic hyperplasia with lower urinary tract symptoms, N13.8 - Other obstructive and reflux uropathy Medications: Changed From tamsulosin 0.4 mg PO DAILY 90 caps 1RF N40.1 - Benign prostatic hyperplasia with lower urinary tract symptoms, N13.8 - Other obstructive and reflux uropathy To tamsulosin 0.4 mg PO BEDTIME 90 caps 3RF 90 days N40.1 - Benign prostatic hyperplasia with lower urinary tract symptoms, N13.8 - Other obstructive and reflux uropathy From finasteride 5 mg PO Tuesday, Tuesday, and Tuesday; 90 tabs 2RF N40.1 - Benign prostatic hyperplasia with lower urinary tract symptoms, N13.8 - Other obstructive and reflux uropathy To finasteride 5 mg PO Tuesday, Tuesday, and Tuesday; 90 tabs 2RF N40.1 - Benig n prostatic hyperplasia with lower urinary tract symptoms, N13.8 - Other obstructive and reflux uropathy Patient Instructions: Imaging studies, laboratory and physical exam results were discussed and reviewed in detail. No major barriers to patient understanding were identified. An opportunity to ask questions regarding the treatment plan was provided. All questions were answered. The patient expressed understanding and agreement with the above treatment plan. The patient is aware they should contact our office by phone for worsening of their current condition or the appearance of new urologic symptoms. Compliance is encouraged with any medications and followup testing that is ordered. It is a privilege to participate in the urologic care of your patient. If you have any questions or concerns regarding treatment for the above conditions, or other urologic issues, please do not hesitate to contact me. The office telephone contact is [phone]. This note is constructed using voice recognition software. While every effort has been made to ensure accuracy database design analyst errors may have been included. Yours sincerely, Dr Garrett Hernandez MD, [facility] - Urology Providers of Expert, Compassionate Care for the Genitourinary System Coding Level of Care Code Est Pt Level 4 (02096) Diagnoses BPH w urinary obs/LUTS N40.1; N13.8 Nocturia R35.1
== END 2024-05-25 16:13 | disposition home or self-care (01) ==
PROVIDERS: PCP Nurse Practitioner Family; Visit Provider Urology
DX: N40.1 Benign prostatic hyperplasia with lower urinary tract symptoms (principal); N13.8 Other obstructive and reflux uropathy; R35.1 Nocturia
CPT/HCPCS: 99214

== ENCOUNTER → 2024-05-25 15:45 | Outpatient (BNVA) | payer BC, SELFPAY | PROVIDERS: PCP Nurse Practitioner Family; Visit Provider Urology ==

== ENCOUNTER 2024-09-25 15:49 | Outpatient (AMB) | payer BC, SELFPAY ==
[2024-09-25 15:50] VITALS: BP 130/70; PULSE 68; O2SAT 97; BMI 35.3
--- NOTE | 2024-09-25 15:50 | A.OFFPC_ITS ---
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 Accompanied by: Self / Same As Patient Allergies levothyroxine sodium Allergy (Unknown, Verified 09/25/24 16:56) unsure simvastatin [Zocor] Allergy (Unknown, Verified 09/25/24 16:56) Unknown lisinopril Adverse Reaction (Unknown, Verified 09/25/24 16:56) cough Medication List - Last Reconciled 09/25/24 by [facility] finasteride 5 mg PO Tuesday, Tuesday, and Tuesday; losartan 25 mg PO DAILY metoprolol succinate ER 100 mg PO DAILY rosuvastatin 5 mg PO DAILY tamsulosin 0.4 mg PO BEDTIME 90 days trazodone 100 mg PO BEDTIME PRN 90 days Tobacco use date assessed: 09/25/24 Dental Screening Dental Screen Date: 09/25/24 Did you have a dental visit in the last 12 months?: Yes Did you have a dental problem in the last 6 months where you did not have access to dental care?: No Was dental information given to patient?: Patient has dentist HPI PE HPI Details History of Present Illness The patient is a 59-year-old male presenting for a routine physical examination and follow-up regarding a previously scheduled colon cancer screening appointment. The screening was initially planned following a referral last year, which the patient did not attend. A new referral for the colon cancer screening has been placed. The patient denies current or past symptoms such as fever, chills, nausea, vomiting, diarrhea, constipation, shortness of breath, chest pain, depression, anxiety, suicidal thoughts, or homicidal thoughts. He maintains regular consultations with a urologist. refused flu vaccination Health Maintenance - Colon cancer screening referral [facility] ed; patient encouraged to follow up. - Follow-up with urologist is ongoing an d encouraged. Social History Review of Systems - General: Denies fevers, chills. - Gastrointestinal: Denies nausea, vomit ing, diarrhea, constipation. - Respiratory: Denies shortness of breat h. - Cardiovascular: Denies chest pain. - Psychiatric: Denies depression, anxiet y, suicidalization, homicidalization. Physical Exam General: Cooperative, healthy appearing, comfortable, no acute distress and well developed Orientation: Patient oriented x3 Limitations: No limitations Head: Normal to inspection Ears: Hearing grossly normal bilaterally Nose: Normal external nose present Face and sinus: Normal facial exam Eyes: Appearance normal, both eyes and all related structures Neck: Normal visual inspection and Yes full ROM Respiratory: Normal respiratory effort and able to speak in complete sentences. Clear to auscultation bilaterally Cardiovascular: Regular rate and rhythm. Normal S1 and S2 GI: Normal to inspection. Soft to palpation and nontender Skin: No rashes or lesions noted Neuro: Patient oriented x3 Extremities: Normal to inspection Results Plan - Reissue referral for colon cancer scre ening as the patient did not attend the initial appointment. - Continue regular follow-up with the ologist. Patient was informed and verbally consented to the use of an ambient scribe for clinic note documentation during this visit. Discussion Notes I discussed with the patient the importance of completing the scheduled colon cancer screening and reiterated the potential benefits of early detection in colorectal cancer. The patient was advised to proceed with the referral as soon as possible. We also reviewed his regular urology follow-ups, emphasizing their significance in maintaining his health, and encouraged him to continue attending those appointments. Patient Instructions - Schedule and complete the colon cancer screening as soon as possible. - Continue regular follow-ups with your urologist. - Get labs done as previously discussed. [facility] Medical History Erectile dysfunction Thyroid disease Cervical radiculitis Anal fissure NSVT (nonsustained ventricular tachycardia) PVC (premature ventricular contraction) Weak urinary stream History of adenomatous polyp of colon GERD (gastroesophageal reflux disease) Dysphagia Hemochromatosis carrier Essential hypertension Surgical History History of anal fissures History of vasectomy Family History Father Lung cancer Mother Diabetes mellitus Heart problem Tachycardia Maternal Grandmother Unknown family medical history Social History Housing: House Patient Tobacco Use Status: Former Tobacco user Tobacco use type: Cigarette Years Smoked: 1991 e-Cigarette/Vaping Use: Never Used Second Hand Smoke Exposure: No service: Yes Current occupational status: employed Current occupation: [employer] Current occupational exposures/hazards: Yes Cognitive needs: No Hearing needs: No Vision needs: Yes Questionnaire PHQ-9 Over the last 2 weeks, how often have you been bothered by any of the following problems? 1. Little interest or pleasure in doing things: several days 2. Feeling down, depressed, or hopeless: not at all 3. Trouble falling or staying asleep, or sleeping too much: nearly every day 4. Feeling tired or having little energy: nearly every day 5. Poor appetite or overeating: several days 6. Feeling bad about yourself - or that you are a failure or have let yourself or your family down: not at all 7. Trouble concentrating on things, such as reading the newspaper or watching television: not at all 8. Moving or speaking so slowly that other people could have noticed. Or the opposite - being so fidgety or restless that you have been moving around a lot more than usual: not at all 9. Thoughts that you would be better off or of hurting yourself in some way: not at all Total score: 8 Depression Screening Interpretation: Negative Depression Screening Done: Yes 20338 - PHQ-9 Billing: Yes Source: Developed by Drs. Renard Cooper, Kaitlin Schmitz, Leoncio Zapata and colleagues, with an educational macie from [employer]. Thrive Questionnaire Date Thrive assessed: 09/25/24 I am a: Patient What is your living situation today?: I have a steady place to live Within the past 12 months, did the food you bought not last and you didn't have the money to get more?: Never true Within the past 12 months, did you worry whether your food would run out before you got money to buy more?: Never true Do you have trouble paying for medicines?: No Do you have trouble getting transportation to medical appointments?: No Do you have trouble paying your heating and electricity bill?: No Do you have trouble taking care of your child, family member or friend?: No Do you have trouble with day-to-day activities such as bathing, preparing meals, shopping, managing finances, etc.?: No Are you currently unemployed and looking for a job?: No Are you interested in more education?: No Please select the resources that you would like help with: None Currently or been in a relationship where the following occur: No concerns reported THRIVE Score: 0 AUDIT C Alcohol Use Questionnaire (AUDIT-C) 1. How often do you have a drink containing alcohol?: Monthly or less 2. How many drinks containing alcohol do you have on a typical day when you are drinking?: 1 or 2 3. How often do you have six or more drinks on one occasion?: Never Total Score: 1 Score Reviewed/Action Taken: Yes KLAUDIA-7 AMB Questionnaire KLAUDIA-7 Date KLAUDIA - 7 assessed: 09/25/24 Feeling nervous, anxious, or on edge: 1 = Several days Not being able to stop or control worryin = Several days Worrying too much about different things: 1 = Several days Trouble relaxin = Several days Being so restless that it is hard to sit still: 1 = Several days Becoming easily annoyed or irritable: 1 = Several days Feeling afraid as if something awful might happen: 0 = Not at all Total KLAUDIA-7 score (0-4 normal; 5-9 mild; 10-14 moderate; 15-21 severe): 6 Source: Developed by Drs. Renard Cooper, Kaitlin Schmitz, Leoncio Zapata and colleagues, with an educational macie from [employer]. KLAUDIA-7 Assessment Billing KLAUDIA-7 Assessment Tool: KLAUDIA-7 Assessment 06748 Physical exam (Primary Care) Vital Signs: Last Vital Signs Pulse 68 09/25/24 15:50 BP 130/70 09/25/24 15:50 Pulse Ox 97 09/25/24 15:50 Oxygen Delivery Method Room Air 09/25/24 15:50 BMI result Body Mass Index 35.3 Tobacco/Smoking Status: Tobacco use Status Tobacco use date assessed 09/25/24 09/25/24 15:51 Patient Tobacco Use Status Former Tobacco user 09/25/24 15:50 Tobacco use type Cigarette 09/25/24 15:50 e-Cigarette/Vaping Use Never Used 09/25/24 15:50 PHQ-9: PHQ-9 Score PHQ-9: Total score 8 09/25/24 15:51 Depression Screening Interpretation: Negative Thrive Assessment: Date of Thrive Assessment Date Thrive assessed 09/25/24 09/25/24 15:51 Currently or been in a relationship where the following occur: No concerns reported Coding Level of Care Code Est Pt Prev Care 40-64y(59812) Diagnoses Physical exam Z00. Screening for colon cancer Z12.11 Additional Codes KLAUDIA-7 Assessment Billing - KLAUDIA-7 Assessment Tool: KLAUDIA-7 Assessment 34239 ([id number]) PHQ-9 - 87164 - PHQ-9 Billing: Yes ([id number]) Assessment & Plan Assessment & Plan (1) Physical exam: Code(s): Z00.00 - Encounter for general adult medical examination without abnormal findings Category: Medical (2) Screening for colon cancer: Code(s): Z12.11 - Encounter for screening for malignant neoplasm of colon Category: Medical Plan . Orders: Orders Complete Blood Count Auto Diff Today Z00.00 - Encounter for general adult medical examination without abnormal findings UA CC w/rflx Micro + Cult Today Z00.00 - Encounter for general adult medical examination without abnormal findings Comprehensive [place]. Panel Fast Today Z00.00 - Encounter for general adult medical examination without abnormal findings TSH reflex Free T4 Today Z00.00 - Encounter for general adult medical examination without abnormal findings Lipid Panel Today Z00.00 - Encounter for general adult medical examination without abnormal findings Referrals Gastroenterology Referral Z12.11 - Encounter for screening for malignant neoplasm of colon
== END 2024-09-25 16:48 | disposition home or self-care (01) ==
PROVIDERS: PCP Nurse Practitioner Family; Visit Provider Nurse Practitioner Family
DX: Z00.00 Encounter for general adult medical examination without abnormal findings (principal); Z12.11 Encounter for screening for malignant neoplasm of colon

== ENCOUNTER → 2024-09-25 15:49 | Outpatient (BNVA) | payer BC, SELFPAY | PROVIDERS: PCP Nurse Practitioner Family; Visit Provider Nurse Practitioner Family | DX: Z00.00 Encounter for general adult medical examination without abnormal findings (principal) | CPT/HCPCS: 96127 ==

== ENCOUNTER 2025-05-13 12:54 | Outpatient (REF) | payer BC, SELFPAY ==
[2025-05-13 16:56] LABS: Prostate Specific Antigen 2.53 ng/mL (<0.05-4.0)
--- OUTSIDE RECORDS SUMMARY | 2025-05-13 17:46 | XMS_ITS | Patient Health Record ---
Author Organization [facility] Address [address] [place] [address] Care Team Providers Care Electronic Security Specialist Name Role Phone Sal WILKES, [phone] [place] [facility] Pro vider Unavailable Black, Barbara Unavailable [phone] Reason For Referral No Information Medications Medication SIG (Take, Route, Frequency, Duration) Notes Start Date End Date Status Feldene 20 MG 1 capsule with food Orally Once a day; Duration: 30 day(s) 06/02/2015 Not-Taking Feldene 20 MG 1 capsule with food Orally Once a day; Duration: 30 day(s) 08/18/2015 Active Night Splint AFO - L1930 as directed 07/07/2015 Active Omeprazole Active Milk Thistle Active Pravastatin Sodium A ctive dilTIAZem HCl ER Act valentino Losartan Potassium 50 MG 1 tablet Orally Once a day Active Problems No Known Problems Plan Of Treatment Pending Test Test Name Order Date 22798,[id number] TENDON SHEATH/LIGAMENT 0 09/19/2015 Insurance Providers Payer Name Payer Address Payer Phone Subscriber Number Group Number Insured Name Patient Relationship to Insured Coverage Start Date Coverage End Date [facility] [address] [place] [address] [id number] Doris Rutherford Spouse - patient is the spouse of the insured Medical (General) History Medical History History ICD Code High blood pressure Chicken pox Surgical History Surgery Date(Month/Year) vasectomy 2002
== END 2025-05-13 12:55 | disposition home or self-care (01) ==
LOC: HO.HMGCLDS 12:54
PROVIDERS: PCP Nurse Practitioner Family; Visit Provider Urology
DX: Z12.5 Encounter for screening for malignant neoplasm of prostate (principal); N40.1 Benign prostatic hyperplasia with lower urinary tract symptoms; N13.8 Other obstructive and reflux uropathy
CPT/HCPCS: 36415; 84153

== ENCOUNTER 2025-05-23 09:04 | Outpatient (REF) | payer OTHER, BC, SELFPAY ==
--- NOTE | ~2025-05-23 | XR_ITS ---
EXAMINATION: XR HAND, RIGHT CLINICAL INFORMATION: M79.641 - Pain in right hand; right wrist injury this a.m. COMPARISON: None available. TECHNIQUE: PA, lateral, and oblique views of the right hand. FINDINGS: No fracture, dislocation, or suspicious bone lesion. Normal bone mineralization. Normal alignment. Joint spaces are preserved. No significant arthropathy. Soft tissues appear normal. XR/XR hand RT min 3V IMPRESSION: Normal right hand. Electronically signed by: Mando Roldan MD 05/23/2025 09:58 AM EDT
== END 2025-05-23 09:05 | disposition home or self-care (01) ==
LOC: HO.HMGCX 09:04
PROVIDERS: PCP Nurse Practitioner Family; Visit Provider Nurse Practitioner Family
DX: M79.641 Pain in right hand (principal)
CPT/HCPCS: 73130; 99212

== ENCOUNTER 2025-05-23 09:04 | Outpatient (AMB) | payer OTHER, SELFPAY ==
[2025-05-23 09:05] VITALS: BP 146/90; PULSE 82; TEMP 36.8; O2SAT 98; BMI 34.5
--- NOTE | 2025-05-23 09:05 | MHC.OFFWIV ---
Intake Vital Signs 05/23/25 09:05 Height 5 ft 8 in Weight 227 lb BMI 34.5 BP 146/90 H Blood Pressure Location Lt brachial Position Sitting Pulse 82 Pulse Source Pulse Oximeter Temp 98.2 F Temp Source Oral Pulse Oximetry (%) 98 Oxygen Delivery Method Room Air Intake Visit Reasons: ep hurt right hand at work Patient Tobacco Use Status: Former Tobacco user Allergies levothyroxine sodium Allergy (Unknown, Verified 05/23/25 09:08) unsure simvastatin (Zocor) Allergy (Unknown, Verified 05/23/25 09:08) Unknown lisinopril Adverse Reaction (Unknown, Verified 05/23/25 09:08) cough Do you need a note to return to daycare/school/sports/work: Yes Return to daycare/school/sports/work/other note: work HPI HPI Comments History of Present Illness Details 59 y/o Male patient who presents to the walk in clinic today with c/o Right hand/wrist injury at work. 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 He c/o Pain with swelling of right hand/wrist. Reports pain with Making a fist or holding anything on his Hand. He has not taken any pain relief medications. [facility] Medical History Erectile dysfunction Thyroid disease Cervical radiculitis Anal fissure NSVT (nonsustained ventricular tachycardia) PVC (premature ventricular contraction) Weak urinary stream History of adenomatous polyp of colon GERD (gastroesophageal reflux disease) Dysphagia Hemochromatosis carrier Essential hypertension Surgical History History of anal fissures History of vasectomy Family History Father Lung cancer Mother Diabetes mellitus Heart problem Tachycardia Maternal Grandmother Unknown family medical history Social History Housing: House Patient Tobacco Use Status: Former Tobacco user Tobacco use type: Cigarette Years Smoked: 1991 e-Cigarette/Vaping Use: Never Used Second Hand Smoke Exposure: No service: Yes Current occupational status: employed Current occupation: [employer] Current occupational exposures/hazards: Yes Cognitive needs: No Hearing needs: No Vision needs: Yes Review of Systems Const All systems reviewed & are unremarkable except as noted in HPI and below Physical Exam Vital Signs: Last Vital Signs Temp 98.2 F 05/23/25 09:05 Pulse 82 05/23/25 09:05 BP 146/90 H 05/23/25 09:05 Pulse Ox 98 05/23/25 09:05 Oxygen Delivery Method Room Air 05/23/25 09:05 BMI result Body Mass Index 34.5 Const General: no acute distress Nutritional Appearance: obese Orientation/consciousness: patient oriented x3 Neuro General: patient oriented x3, gait normal and moves all extremities Extrem General: Yes capillary refill normal Right upper extremity: wrist Details: tenderness Location: of the distal radius, swelling Location: of the dorsal wrist and abnormal ROM Details: pain with active ROM during and pain with passive ROM during; no unusual warmth, no ecchymosis and no crepitus and Extremity exam: right hand Details: normal capillary refill, tenderness Location: of the dorsal hand Location: over the 2nd metacarpal, over the 3rd metacarpal, over the 4th metacarpal and over the 5th metacarpal, normal ROM of fingers (But limited due to pain. ) and swelling (Mild swelling, no redness or warmth. ) Location: of the dorsal hand; no unusual warmth, no abrasions, no ecchymosis and no crepitus Psych Speech and movement: Normal speech and movement present Assessment & Plan Assessment & Plan (1) Right hand pain: Code(s): M79.641 - Pain in right hand Plan: Mostly right hand contusion from the impact. Ordered Xray Hand/wrist to r/o Fx Wrapped hand with Saravanan bandage. NSAIDs, Acetaminophen and Flexeril for pain relief Rest joint and apply Ice/Heat Orders: Orders XR hand RT min 3V Today M79.641 - Pain in right hand Medications: New acetaminophen 1,000 mg (2 x 500 mg) PO Q6H PRN 20 caps 0RF pain M79.641 - Pain in right hand meloxicam 7.5 mg PO DAILY 20 tabs 0RF 10 days M79.641 - Pain in right hand cyclobenzaprine 5 mg PO BEDTIME 10 tabs 0RF M79.641 - Pain in right hand Coding Level of Care Code Est Pt Level 4 (22102) Diagnoses Right hand pain M79.641 Time Spent (min) 20
--- OUTSIDE RECORDS SUMMARY | 2025-05-23 09:47 | XMS_ITS | Patient Health Record ---
[facility] Address [address] [place] [address] Care Team Providers Care Manufacturing Engineer Assembly Name Role Phone Sal WILKES, [phone] [facility] Pro vider Unavailable Black, Barbara Unavailable [phone] Reason For Referral No Information Medications Medication [...] Treatment Pending Test Test Name Order Date [id number] TENDON SHEATH/LIGAMENT 0 09/19/2015 Insurance Providers Payer Name Payer Address Payer Phone Subscriber Number Group Number Insured Name Patient Relationship to Insured Coverage Start Date Coverage End Date [facility] [address] [place] [address] [phone] [id number] Doris Rutherford Spouse - patient is the spouse of the insured Medical (General) History Medical History History ICD Code High blood pressure Chicken pox Surgical History Surgery Date(Month/Year) vasectomy 2002
== END 2025-05-23 09:37 | disposition home or self-care (01) ==
PROVIDERS: PCP Nurse Practitioner Family; Visit Provider Nurse Practitioner Family
DX: M79.641 Pain in right hand (principal)

== ENCOUNTER → 2025-05-23 09:42 | Outpatient (BNV) | payer OTHER, SELFPAY | PROVIDERS: PCP Nurse Practitioner Family; Visit Provider Radiology Diagnostic Radiology | DX: M79.641 Pain in right hand (principal) | CPT/HCPCS: 73130 ==

== ENCOUNTER 2025-05-24 08:22 | Outpatient (AMB) | payer BC, SELFPAY ==
--- NOTE | 2025-05-24 08:24 | A.OFFVIS_ITS ---
Intake Visit Reasons: 1YR psa/pvr Intake Note: patient presents today for: 1yr follow up urology medications: finasteride, tamsulosin blood thinners: none labs done 05/13/25: PSA 2.53 today's PVR: 70mls Food Service Steward Required: No Accompanied by: Self / Same As Patient Allergies levothyroxine sodium Allergy (Unknown, Verified 05/24/25 08:26) unsure simvastatin (Zocor) Allergy (Unknown, Verified 05/24/25 08:26) Unknown lisinopril Adverse Reaction (Unknown, Verified 05/24/25 08:26) cough HPI Comments Details: ? Ty MYERS is a very pleasant male. They are a patient of Dr. Huang. They are seen in the office today for the following urologic conditions. - lower urinary tract symptoms PSA remains low Finasteride every other day PSA 05/23 2.5 Check labs in 12 months Did have some issues with libido - baseline testosterone 400 Lower Urinary Tract Symptoms:? Current visit is for?further evaluation of, lower urinary tract symptoms, predominate obstructive symptoms.? Current treatment includes?alpha margarita, 5-AR.? Prostate Symptom Score?Main issue is weakness of stream with incomplete emptying has been progressive.? Results from testing include? 2018 ? renal/bladder us ?Yes ? PVR ?350 ? prostate size ?75 ? Prior Prostate Score?unknown.? Prostate volume?50+gm.? SPA 07/17 2.1, 01/16 1.7, 05/20 1.8, 05/22 1.7, 05/23 2.5 ? Testing at next visit will include?uroflow.? Treatment plan?review in 12 months [facility] Medical History Erectile dysfunction Thyroid disease Cervical radiculitis Anal fissure NSVT (nonsustained ventricular tachycardia) PVC (premature ventricular contraction) Weak urinary stream History of adenomatous polyp of colon GERD (gastroesophageal reflux disease) Dysphagia Hemochromatosis carrier Essential hypertension Surgical History History of anal fissures History of vasectomy Family History Father Lung cancer Mother Diabetes mellitus Heart problem Tachycardia Maternal Grandmother Unknown family medical history Social History Housing: House Patient Tobacco Use Status: Former Tobacco user Tobacco use type: Cigarette Years Smoked: 1991 e-Cigarette/Vaping Use: Never Used Second Hand Smoke Exposure: No service: Yes Current occupational status: employed Current occupation: [employer] Current occupational exposures/hazards: Yes Cognitive needs: No Hearing needs: No Vision needs: Yes Review of Systems Const Denies chills and Denies fever(s) Card Reports no additional complaints and Denies syncope Resp Denies cough GI Denies abdominal pain and Denies heartburn Reports as per HPI and Denies change in libido Neuro Denies syncope Psych Denies change in libido Endo Denies change in libido Physical Exam Const General: cooperative, healthy appearing, comfortable and no acute distress Orientation/consciousness: patient oriented x3 HEENT Face and sinus: Yes normal facial exam Mouth: moist mucous membranes Neck Neck: Yes normal visual inspection, Yes full ROM and Yes trachea midline Chest Chest palpation & inspection: normal inspection of the chest Resp Effort & Inspection: normal respiratory effort, able to speak in complete sentences and no respiratory distress GI Inspection: Yes normal to inspection Back/Spine/Pelvis Cervical Spine: normal cervical lordosis Thoracic/Lumbar Spine: thoracic and lumbar spine normal to inspection Skin General skin exam: no rashes or lesions noted Neuro General: patient oriented x3, gait normal, tone normal and moves all extremities Extrem General: Yes normal to inspection and Yes capillary refill normal Assessment & Plan Assessment & Plan (1) BPH w urinary obs/LUTS: Code(s): N40.1 - Benign prostatic hyperplasia with lower urinary tract symptoms; N13.8 - Other obstructive and reflux uropathy Category: Medical (2) Nocturia: Code(s): R35.1 - Nocturia Category: Medical Plan Twelve month follow-up PSA office Orders: Orders Prostate Specific Antigen 12 Months N13.8 - Other obstructive and reflux uropathy, N40.1 - Benign prostatic hyperplasia with lower urinary tract symptoms Patient Instructions: This note is constructed using voice recognition software. While every effort has been made to ensure accuracy laborer aquatic life errors may have been included. Imaging studies, laboratory and physical exam results were discussed and reviewed in detail. No major barriers to patient understanding were identified. An opportunity to ask questions regarding the treatment plan was provided. All questions were answered. The patient expressed understanding and agreement with the above treatment plan. The patient is aware they should contact our office by phone for worsening of their current condition or the appearance of new urologic symptoms. Compliance is encouraged with any medications and followup testing that is ordered. It is a privilege to participate in the urologic care of your patient. If you have any questions or concerns regarding treatment for the above conditions, or other urologic issues, please do not hesitate to contact me. The office telephone contact is [phone]. Sincerely, Dr Garrett Hernandez MD, [facility] - Urology Compassionate Specialist Care for the Genitourinary System Coding Level of Care Code Est Pt Level 4 (17558) Diagnoses BPH w urinary obs/LUTS N40.1; N13.8 Nocturia R35.1
--- OUTSIDE RECORDS SUMMARY | 2025-05-24 08:45 | XMS_ITS | Patient Health Record ---
[facility] Address [address] [place] [address] Care Team Providers Care Sales And Marketing Manager Name Role Phone Sal WILKES, [phone] [place] [facility] Pro vider Unavailable Black, Barbara Unavailable [phone] Reason For Referral No Information Medications Medication [...] Treatment Pending Test Test Name Order Date [id number] TENDON SHEATH/LIGAMENT 0 09/19/2015 Insurance Providers Payer Name Payer Address Payer Phone Subscriber Number Group Number Insured Name Patient Relationship to Insured Coverage Start Date Coverage End Date [facility] [address] [place] [address] [phone] [id number] Doris Rutherford Spouse - patient is the spouse of the insured Medical (General) History Medical History History ICD Code High blood pressure Chicken pox Surgical History Surgery Date(Month/Year) vasectomy 2002
== END 2025-05-24 09:00 | disposition home or self-care (01) ==
LOC: HO.HUSH 08:23
PROVIDERS: PCP Nurse Practitioner Family; Visit Provider Urology
DX: N40.1 Benign prostatic hyperplasia with lower urinary tract symptoms (principal); N13.8 Other obstructive and reflux uropathy; R35.1 Nocturia; Z13.9 Encounter for screening, unspecified
CPT/HCPCS: 99214

== ENCOUNTER → 2025-05-24 08:22 | Outpatient (BNVA) | payer BC, SELFPAY | PROVIDERS: PCP Nurse Practitioner Family; Visit Provider Urology | DX: N40.1 Benign prostatic hyperplasia with lower urinary tract symptoms (principal); N13.8 Other obstructive and reflux uropathy; R35.1 Nocturia | CPT/HCPCS: 51798; 81003 ==